=== PATIENT | male | born 1965 | race Hispanic/Latino ===

== ENCOUNTER 2019-10-30 06:42 | Day surgery (SDC) | payer OTHER ==
[2019-10-27 10:02] LABS: BASOPHILS % (AUTO) 0.2 % (0.0-5.0); EOSINOPHILS % (AUTO) 2.1 % (0.0-8.0); HEMATOCRIT 43.7 % (42-54); LYMPHOCYTES % (AUTO) 32.9 % (21.0-51.0); MEAN CORPUSCULAR HGB CONC 34.1 g/dL (32.0-36.0); MONOCYTES % (AUTO) 10.1 % (3.0-13.0); NEUTROPHILS % (AUTO) 54.3 % (40.0-77.0); PLATELET COUNT (AUTO) 191 K/uL (130-400); RED BLOOD CELL COUNT(AUTO) 5.14 MIL/uL (4.50-6.20); RED CELL DISTRIBUTION WIDTH 11.9 % (11.0-15.5); WHITE BLOOD COUNT (AUTO) 5.2 K/uL (4.8-10.8)
[2019-10-27 10:16] LABS: POTASSIUM 3.6 mmol/L (3.5-5.1)
[2019-10-27 10:24] LABS: INR 0.94 (0.85-1.15); PROTHROMBIN TIME 10.2 SEC (9.6-11.6)
[2019-10-27 12:53] VITALS: BP 148/70
[~2019-10-30] VITALS: Ht 170.2 cm; Wt 94.2 kg
[2019-10-30] VITALS (28 sets, daily range): BP systolic 101–133; BP diastolic 47–74
[2019-10-30] MEDS: CEFAZOLIN SODIUM 1 GM VIAL IVP SCH ×2 (05:00→12:20)
[~2019-10-30 06:42] MED LIST: FISH1CAP27 PO; OMEP20TA25 PO
[2019-10-30] MEDS ORDERED: SODIUM CHLORIDE 0.9% 1000ML 1,000 ML IV ONE (08:03)
--- NOTE | 2019-10-30 09:32 | NUR ---
POTENTIAL FOR INFECTION: CLIPPED LEFT SHOULDER / LEFT UPPER ARM PER MARQUES MCCOY, FOLLOWED BY WIPING WITH MARK: 2% CHLORHEXIDINE GLUCONATE CLOTH PATIENTS PRE-OP SKIN PREP.
[2019-10-30] MEDS ORDERED: LIDOCAINE PF 2% 5ML ABBOJECT ONE (10:07)
[2019-10-30] MEDS ORDERED: FENTANYL CITRATE PF 50 MCG/1 ML 5ML AMP IV ONE (10:08)
[2019-10-30] MEDS ORDERED: ROCURONIUM 10MG/1ML SYR 10 MG/ML ML ONE ×2 (10:08→13:06)
[2019-10-30] MEDS ORDERED: NEOSTIGMINE 5MG/5ML SYR IV ONE (10:08)
[2019-10-30] MEDS ORDERED: MIDAZOLAM HCL 1 MG/ML 2ML VIAL ONE (10:08)
[2019-10-30] MEDS ORDERED: ONDANSETRON HCL 4 MG/2 ML VIAL ONE ×3 (10:08→17:06)
[2019-10-30] MEDS ORDERED: DEXAMETHASONE SOD PHOSPHATE 10MG/ML 1ML VIAL ONE (10:08)
[2019-10-30] MEDS ORDERED: PROPOFOL 10 MG/ML 20ML VIAL IV ONE (10:08)
[2019-10-30] MEDS ORDERED: GLYCOPYRROLATE 1 MG/5 ML SYRINGE ONE (10:09)
[2019-10-30] MEDS ORDERED: EPINEPHRINE 1 MG/ML 30ML VIAL IJ ONE (10:23)
[2019-10-30] MEDS ORDERED: EPHEDRINE SULFATE 50 MG/ML AMPULE ONE (11:56)
[2019-10-30] MEDS ORDERED: SUCCINYLCHOLINE CHLORIDE 20 MG/ML 10 ML VIAL ONE (12:08)
[2019-10-30] MEDS ORDERED: PHENYLEPHRINE HCL 10 MG/ML 1ML VIAL IV ONE (12:14)
[2019-10-30] MEDS ORDERED: HETASTARCH IN 0.9 % NACL 500 ML IV ONE (12:14)
[2019-10-30] MEDS ORDERED: CEFAZOLIN SODIUM 1 GM VIAL ONE (12:26)
[2019-10-30] MEDS ORDERED: KETOROLAC TROMETHAMINE 30MG/ML ONE (15:40)
[2019-10-30] MEDS ORDERED: FENTANYL CITRATE PF 50 MCG/1 ML 2ML VIAL ONE (15:40)
[2019-10-30] MEDS ORDERED: IBUP-2070 PO (16:03)
[2019-10-30] MEDS ORDERED: HYDR-4457 PO (16:03)
[2019-10-30] MEDS ORDERED: CEPH500B PO (16:03)
[2019-10-30] MEDS ORDERED: MEPERIDINE-PF 25 MG/ML SYG ONE (16:45)
[2019-10-30] MEDS ORDERED: METOCLOPRAMIDE 10 MG/2 ML VIAL ONE (17:07)
--- NOTE | 2019-10-30 18:00 | NUR ---
6.25mg of promethazin given IVP for nausea only per ARINA Vargas
== END 2019-10-30 18:55 | disposition home or self-care (01) ==
LOC: DAH 06:42
PROVIDERS: ATTEND Orthopaedic Surgery
DX: S43.102A Unspecified dislocation of left acromioclavicular joint, initial encounter (principal); S46.812A Strain of other muscles, fascia and tendons at shoulder and upper arm level, left arm, initial encounter; M19.012 Primary osteoarthritis, left shoulder; E78.00 Pure hypercholesterolemia, unspecified; Z79.899 Other long term (current) drug therapy; X58.XXXA Exposure to other specified factors, initial encounter; Y93.89 Activity, other specified; Y92.89 Other specified places as the place of occurrence of the external cause; Y99.0 Civilian activity done for income or pay
CPT/HCPCS: 23120; 23550; 29826; 29827; 36415; 64415; 73000; 76942; 80048; 85025; 85610; A4215; A4221; A4222; A4223; A4565; A4600; A4649 ×4; A4663; A4930 ×2; A6204; C1713 ×3; G0168; J0171; J0330; J0690 ×2; J1100; J1885; J2001; J2175; J2250; J2370; J2405 ×3; J2704; J2710; J2765; J3010 ×2; J3490 ×3; J7030 ×2; J7120